=== PATIENT | male | born 1985 | race African-American/Black ===

== ENCOUNTER 2017-10-11 00:52 | Emergency (ER) | payer OTHER ==
[~2017-10-11] VITALS: Ht 172.7 cm; Wt 88.5 kg
[~2017-10-11 00:52] MED LIST: DIVA500T PO; KEPP500 PO; LAMO25TA4 PO; RISP0.5T19 PO
[2017-10-11] MEDS ORDERED: OLANZAPINE 10 MG/VIAL IM ONE (03:45)
[2017-10-11 04:00] LABS: HEMOGLOBIN. 12.4 g/dL (14.0-18.0); MEAN CORPUSCULAR HEMOGLOBIN 29.3 pg (28.0-32.0); MEAN CORPUSCULAR VOLUME 89.7 fL (80.0-94.0); MEAN PLATELET VOLUME 7.4 fl (7.4-10.4); PLATELET 268 x1000/uL (130-400); RED BLOOD CELL COUNT 4.23 mill/uL (4.7-6.1); RED CELL DISTRIBUTION WIDTH 13.9 % (11.6-14.6)
[2017-10-11 04:04] LABS: CHLORIDE 103 mEq/L (98-107)
[2017-10-11 04:07] LABS: ETHANOL BLOOD < 10 mg/dL
[2017-10-11 04:08] LABS: CLARITY URINE CLEAR (CLEAR); COLOR URINE YELLOW (YELLOW); KETONES URINE NEGATIVE (NEGATIVE); LEUKOCYTE ESTERASE URINE NEGATIVE (NEGATIVE); NITRITE URINE NEGATIVE (NEGATIVE); OCCULT BLOOD URINE NEGATIVE (NEGATIVE); PH URINE 8.5 (4.5-8.0); PROTEIN URINE NEGATIVE (NEGATIVE); SPECIFIC GRAVITY URINE 1.026 (1.005-1.030)
[2017-10-11 04:20] LABS: *AMPHETAMINES SCREEN URINE NEGATIVE (NEGATIVE)
[2017-10-11 04:21] LABS: *BARBITURATES SCREEN URINE NEGATIVE (NEGATIVE); *BENZODIAZEPINES SCREEN URINE NEGATIVE (NEGATIVE); *COCAINE SCREEN URINE NEGATIVE (NEGATIVE); METHADONE URINE SCREEN NEGATIVE (NEGATIVE); OPIATES URINE SCREEN NEGATIVE (NEGATIVE); PHENCYCLIDINE URINE SCREEN NEGATIVE (NEGATIVE)
[2017-10-11 04:22] LABS: CANNABINOID URINE SCREEN NEGATIVE (NEGATIVE)
[2017-10-11 07:26] LABS: PLATELET ESTIMATE NORMAL
[2017-10-11 15:15] VITALS: BP 132/76
== END 2017-10-11 15:33 | disposition home or self-care (01) ==
LOC: ER 00:52
DX: F98.9 Unspecified behavioral and emotional disorders with onset usually occurring in childhood and adolescence (principal); F84.0 Autistic disorder
CPT/HCPCS: 36415; 80053; 80305; 81003; 85025; 96372; 99284; G0482; J3490

== ENCOUNTER 2019-03-17 20:13 | Emergency (ER) | payer OTHER ==
[~2019-03-17] VITALS: Ht 177.8 cm; Wt 99.0 kg
[~2019-03-17 20:13] MED LIST changes: +DIVA-75 PO; -DIVA500T PO; -LAMO25TA4 PO; +LAMO25TA9 PO
[2019-03-17] MEDS ORDERED: LIDOCAINE HCL/PF 1% 10 MG/ML 5ML VIAL IJ ONE (22:45)
[2019-03-17] MEDS ORDERED: TETANUS, DIPHTHERIA, PERTUSSIS VAC/PF 0.5ML (>7YR OLD) IM ONE (22:45)
[2019-03-17 23:10] LABS: BASOPHILS % 0.4 % (0.0-2.0); EOSINOPHILS % 3.3 % (0.0-5.0); HEMATOCRIT. 36.6 % (42.0-52.0); HEMOGLOBIN. 12.1 g/dL (14.0-18.0); LYMPHOCYTES % 39.1 % (20.0-50.0); MEAN CORPUSCULAR HEMOGLOBIN 29.1 pg (28.0-32.0); MEAN CORPUSCULAR VOLUME 88.4 fL (80.0-94.0); MEAN PLATELET VOLUME 6.9 fl (7.4-10.4); MONOCYTES % 14.3 % (2.0-8.0); NEUTROPHILS % 42.9 % (40.0-76.0); PLATELET 273 x1000/uL (130-400); RED BLOOD CELL COUNT 4.14 mill/uL (4.7-6.1); RED CELL DISTRIBUTION WIDTH 14.3 % (11.6-14.6)
[2019-03-17 23:16] LABS: CHLORIDE 103 mEq/L (98-107)
[2019-03-17 23:20] LABS: ETHANOL BLOOD < 10 mg/dL
[2019-03-17] MEDS ORDERED: LAMOTRIGINE 100MG TABLET PO STA (23:59)
[2019-03-18] MEDS ORDERED: VALPROIC ACID 250MG CAPSULE PO ONE
[2019-03-18] MEDS ORDERED: LEVETIRACETAM 500MG TABLET PO ONE
[2019-03-18 00:01] LABS: CLARITY URINE CLEAR (CLEAR); COLOR URINE YELLOW (YELLOW); KETONES URINE TRACE (NEGATIVE); LEUKOCYTE ESTERASE URINE NEGATIVE (NEGATIVE); NITRITE URINE NEGATIVE (NEGATIVE); OCCULT BLOOD URINE NEGATIVE (NEGATIVE); PH URINE 6.5 (4.5-8.0); PROTEIN URINE NEGATIVE (NEGATIVE); SPECIFIC GRAVITY URINE 1.026 (1.005-1.030)
[2019-03-18 00:12] LABS: *AMPHETAMINES SCREEN URINE NEGATIVE (NEGATIVE); *BARBITURATES SCREEN URINE NEGATIVE (NEGATIVE)
[2019-03-18 00:13] LABS: *BENZODIAZEPINES SCREEN URINE NEGATIVE (NEGATIVE); *COCAINE SCREEN URINE NEGATIVE (NEGATIVE); METHADONE URINE SCREEN NEGATIVE (NEGATIVE); OPIATES URINE SCREEN NEGATIVE (NEGATIVE); PHENCYCLIDINE URINE SCREEN NEGATIVE (NEGATIVE)
[2019-03-18 00:34] LABS: CANNABINOID URINE SCREEN NEGATIVE (NEGATIVE)
[2019-03-18 00:35] VITALS: BP 120/89
== END 2019-03-18 00:36 | disposition home or self-care (01) ==
LOC: ER 23:04
DX: S01.01XA Laceration without foreign body of scalp, initial encounter (principal); G40.909 Epilepsy, unspecified, not intractable, without status epilepticus; X58.XXXA Exposure to other specified factors, initial encounter; Y93.89 Activity, other specified; Y92.89 Other specified places as the place of occurrence of the external cause; Y99.8 Other external cause status
CPT/HCPCS: 12002; 36415; 80053; 80165; 80305; 80320; 81003; 85025; 90471; 90715; 99284; J3490; Z7610; G0480